=== PATIENT | female | born 1995 | race Caucasian/White ===

== ENCOUNTER 2021-04-10 14:29 | Outpatient (CLI) | payer OTHER, SELFPAY ==
--- NOTE | 2021-04-10 15:07 | CT_ITS ---
WS: [id number] CT ABDOMEN CONTRAST TECHNIQUE: Contrast enhanced CT of the abdomen with coronal and sagittal reformatted images. CLINICAL INFORMATION: LUQ PAIN COMPARISON: None. DLP: 890.[address] scans at [facility] use at least one of these dose optimization techniques: automat ed exposure control; mA and/or kV adjustment per patient size (includes targeted exams where dose is matched to clinical indication); or iterative reconstruction. FINDINGS: Lung bases are well aerated. No acute pulmonary infiltrates. Hepatomegaly measuring 19 cm c raniocaudal. A few tiny hepatic cysts. Normal portal vein and splenic vein. Normal spleen. Normal GE junction. Normal pancreatic parenchymal enhancement. Gallbladder is contracted. Adrenal glands are no rmal. Normal renal parenchymal enhancement. No hydronephrosis. Bilateral renal cysts the largest in t he left measuring 2.3 CM. No hydronephrosis. Normal caliber abdominal aorta. Small amount of free fluid in the cul-de-sac partially visualized. No evidence of high-grade small or large bowel obstruction. Tiny fat-containing umbilical hernia. No abdominal lymphadenopathy. Chronic bilateral pars defects L4-5 with grade 1 anterolisthesis measuring 4 mm. Disc osteophyte comp adan results in mild to moderate central canal stenosis with moderate facet arthropathy in combination with grade 1 anterolisthesis. Mild bilateral L4-[address]/CT abdomen w con* [id number] IMPRESSION: 1. Grade 1 anterolisthesis L4 on L5 with disc osteophyte complex and chronic b ilateral pars defects. Anterolisthesis measures 4 mm with mild to moderate cent ral canal stenosis. Mild bilateral L4-5 foraminal narrowing. 2. Hepatomegaly with mild diffuse fatty infiltration. 3. Gallbladder is contracted. 4. Bilateral renal cysts largest in the left measuring 2.3 CM. 5. Normal spleen. 6. Normal GE junction. 7. Small amount of free fluid in the cul-de-sac partially visualized on this a bdominal CT. 8. Tiny fat-containing umbilical hernia.
[2021-04-10] MEDS: iohexol 300 mg/mL 50 mL Btl PO (15:09)
[2021-04-10] MEDS: iohexol 300 mg/mL 100 mL Btl IV (15:26)
== END 2021-04-10 14:30 | disposition home or self-care (01) ==
PROVIDERS: PCP Family Medicine; Visit Provider Family Medicine
DX: R10.12 Left upper quadrant pain (principal); K42.9 Umbilical hernia without obstruction or gangrene; K76.89 Other specified diseases of liver; M25.78 Osteophyte, vertebrae
CPT/HCPCS: 74160; Q9967

== ENCOUNTER 2022-01-30 05:06 | Inpatient (IN) | payer BC, SELFPAY ==
[2022-01-29] VITALS (8 sets, daily range): BP systolic 111–137; BP diastolic 63–92; PULSE 79–93; RESP 15; TEMP 36.2; O2SAT 94–100; BMI 35.9
[2022-01-29] MEDS: miSOPROStol 100 mcg tablet 25 MCG VAGINAL (20:39)
[2022-01-29 21:14] LABS: Basophils % 0.1 %; Eosinophils # 0.1 10^3/uL (0.0-0.8); Eosinophils % 0.7 %; Hemoglobin 11.8 g/dL (11.5-15.3); Lymphocytes # 1.7 10^3/uL (0.8-4.8); Lymphocytes % 16.9 %; Mean Corpuscular HGB Conc 33.7 g/dL (30.0-36.0); Mean Corpuscular Hemoglobin 30.3 pg (28.0-34.0); Mean Corpuscular Volume 89.7 fl (81-99); Mean Platelet Volume 10.6 fL (7.4-10.4); Monocytes # 0.8 10^3/uL (0.2-0.9); Monocytes % 8.1 %; Neutrophils % 73.6 %; Nucleated Red Blood Cells % 0 %; Platelet Count 247 10^3/cmm (130-400); Red Cell Distribution Width 12.6 % (12.1-15.1); White Blood Count 9.9 10^3/uL (4.0-10.0)
[2022-01-29] MEDS: lactated ringers 1,000 ML 999 ML IV (23:05)
--- NOTE | 2022-01-29 23:48 | ANES.PREANE2 ---
Pre-Anesthetic Assessment Height/Weight: Height 1.63 m Weight 94.801 kg Temp Pulse Resp BP 97.2 F L 79 15 111/69 01/29/22 20:05 01/29/22 23:32 01/29/22 20:21 01/29/22 23:32 Preop Diagnosis: labor epidura; Familial anesthetic complications: none Was Beta Matias taken within 24 hours: N/A Was Clonidine taken within 24 hours: N/A Last Intake: 14:00 Social No alcohol and No tobacco Exam alert, oriented x 3, clear to auscultation bilaterally and regular rate & rhythm Airway Submandibular: within normal limits and Other Cervical ROM: within normal limits Mallampati: Class II Dentition: full Pulmonary None reported CV/HEM None reported None reported Hepatic None reported GI None reported Metabolic None reported Musc/skel None reported Neuropsych None reported Anesthetic Plan ASA status: 2 Anesthesia: Regional (specify below) (epidural) Risk of > 500 ml blood loss (7ml/kg in children): No Medications/Allergies Home Medications Medication Instructions Recorded Confirmed Last Taken Type 1 cap PO DAILY 01/29/22 01/29/22 01/27/22 History Allergies Allergy/AdvReac Type Severity Reaction Status Date / Time Penicillins Allergy ALGY-Rash Verified 01/29/22 23:06 [facility] Anesthesia Female Reproductive History : 2 Data Anesthesia : 01/29/22 20:30 Short CBC 01/29/22 Range/Units 20:30 WBC 9.9 (4.0-10.0) 10^3/uL Hgb 11.8 (11.5-15.3) g/dL Hct 35.0 L (37.0-47.0) % MCV 89.7 (81-99) fl Plt Count 247 (130-400) 10^3/cmm Neut % (Auto) 73.6 % Neut # (Auto) 7.30 (1.8-7.7) 10^3/uL Cardiac Studies: No Data to Display
[2022-01-30] VITALS (136 sets, daily range): BP systolic 77–137; BP diastolic 42–89; PULSE 52–121; RESP 15–18; TEMP 36.5–37.4; O2SAT 97–100
[2022-01-30] MEDS: lactated ringers 1,000 ML 999 ML IV (00:10)
[2022-01-30] MEDS: ePHEDrine 50 mg/mL Inj 10 MG IVP ×2 (00:22→04:47)
--- NOTE | 2022-01-30 00:36 | ANES.PROC ---
Anesthesia Procedures Procedure/Date: 01/30/22 Epidural: Time Out Performed: Yes Consents Signed: Procedure Consent Consent: requested by attending/covering physician, from patient, risks and benefits reviewed and patient agrees to proceed Lumbar Level: L3-L4 Epidural position: sitting Epidural procedure: sterile prep of area (betadine), 1% lidocaine to numb the area (3), 18 g needle, neg for paresthesia, test dose given, 1.5% xylocaine 1:200k epi (3ml/2ml), placed PCEA, no systemic response, sterile dressing applied, L.U.D. no apparent complications and 0.2% Ropiavacaine @ mls/hr (10ml/hr) Additional Comments: Pt once laid down c/o about to pass out. Pt with BP in 80's systolic and HR 60's. Pt given ephedrine 15mg IV. Fluid bolus 500ml started and placed PCEA with no bolus. Pt able to move lower extemities. BP increased to 107/59 pulse 69. Pt states feels much better. Will continue to monitor
[2022-01-30] MEDS: dextrose 5%-lactated ringers 1,000 ML 125 ML IV ×2 (02:28→08:38)
[2022-01-30] MEDS: oxytocin 30 UNIT/500 ML BAG IV (05:56)
--- NOTE | 2022-01-30 11:23 | PM.OPHPUD ---
Labor & Delivery H&P Update Date of Procedure: January 30, 2022 Date H&P Performed: 01/28/22 Admission Diagnosis: 27-year-old 2 para 1 at 40 weeks estimated gestational age presenting to the hospital with spontaneous rupture of membranes Preop diagnosis: labor Planned procedure: Spontaneous vaginal delivery Other information: The patient is an otherwise healthy female who presented to the OB department last night with concerns that she had ruptured membranes. She was checked with nitrazine and found to be positive. She was noted to have grossly ruptured membranes. She was noted to be 3 cm and 60% effaced. Her labs were unremarkable. Her blood type was a positive. Her antibody screen was negative. She was GBS negative. She passed her glucose screen. The remainder of her labs were within normal limits. Related Problem List Diagnoses (1) 40 weeks gestation of : I anticipate routine care. We will augment labor as needed. (2) Spontaneous rupture of membranes:
--- NOTE | 2022-01-30 11:28 | P.PCNOB_ITS ---
Delivery Note: Date of delivery: January 30, 2022 Pre-delivery diagnoses: 27-year-old 2 para 1-0-0-1 female at 40 weeks estimated gestational age with spontaneous rupture of membranes Post-delivery diagnoses: Status post spontaneous vaginal delivery Procedure: Spontaneous vaginal delivery Delivering Physician: Issa Faith Estimated blood loss (mL): 50 Pre-Delivery Course: The patient presented to the hospital with spontaneous rupture of membranes. She was having no contractions. Cytotec 25 mcg x 1 was placed. She gradually progressed to 9. After being at 9 cm for several hours, I elected to augment her labor with Pitocin. She then progressed to complete without difficulty. Delivery: DELIVERY: The patient progressed to complete without difficulty. She delivered a female with a weight of 8 pounds 10 ounces with Apgars of 8, 9. The baby was delivered from the VANGIE position and placed on the mother's abdomen. The cord was then clamped and cut. There was no nuchal cord. There was no meconium. The placenta and 3 vessel cord were delivered intact shortly thereafter. The perineum and vaginal vault were carefully examined. No lacerations were noted. Both the mother and the baby were in stable condition. Post-Delivery Status: Good A&P Assessment and plan (1) Spontaneous rupture of membranes: Status: Acute (2) 40 weeks gestation of : Status: Acute (3) Spontaneous vaginal delivery: I anticipate routine care. Status: Acute Coding Level of Care Code Acute [employer] for Chg Fwd Diagnoses Spontaneous rupture of membranes 40 weeks gestation of Z3A.40 Spontaneous vaginal delivery O80
--- NOTE | 2022-01-30 13:15 | PC.NURSE ---
up to bathroom, void 400mL. audra care performed, pad and gown changed. bed linens changed and pt back to bed.
[2022-01-30] MEDS: ibuprofen 800 mg tablet PO ×2 (14:15→21:33)
[2022-01-30] MEDS: benzocaine-menthol 78 gm Canister 1 SPRAY TOPICAL (14:15)
[2022-01-30] MEDS: HYDROcodone-acetaminophen 5-325 mg Tablet PO ×2 (17:16→23:46)
[2022-01-30] MEDS: docusate sodium 100 mg Capsule PO (17:16)
[2022-01-31 00:05] LABS: Hematocrit 31.3 % (37.0-47.0); Hemoglobin 10.4 g/dL (11.5-15.3); Mean Corpuscular HGB Conc 33.2 g/dL (30.0-36.0); Mean Corpuscular Hemoglobin 30.5 pg (28.0-34.0); Mean Corpuscular Volume 91.8 fl (81-99); Mean Platelet Volume 10.8 fL (7.4-10.4); Platelet Count 202 10^3/cmm (130-400); Red Blood Count 3.41 10^6/uL (4.1-5.3); Red Cell Distribution Width 12.7 % (12.1-15.1); White Blood Count 13.5 10^3/uL (4.0-10.0)
[2022-01-31 01:15] VITALS: BP 120/77; PULSE 64; RESP 14; TEMP 36.5; O2SAT 97
[2022-01-31 06:00] VITALS: BP 116/70; PULSE 66; RESP 16; TEMP 36.4; O2SAT 97
--- NOTE | 2022-01-31 07:02 | PM.OBGYDC ---
Discharge Providers GLOBAL IMPLEMENTATION MANAGER Date of Admission: 01/30/22 05:06 Date of Discharge: 02/04/22 Attending Provider at Admission: Issa Faith MD Attending Provider at Discharge: Issa Faith MD Primary Care Provider: Issa Faith MD Diagnoses at Discharge Discharge Diagnosis (1) Spontaneous rupture of membranes: Status: Resolved (2) 40 weeks gestation of : Status: Resolved (3) Spontaneous vaginal delivery: Status: Resolved Reason for Visit Reason for Visit: Possible ROM Hospital Course Hospital Course The patient presented to the hospital with spontaneous rupture of membranes. She was placed on Cytotec 25 mcg. She is then placed on Pitocin to augment her labor. She progressed to complete and had an unremarkable delivery of a healthy-appearing baby. Her course was also unremarkable. Her bleeding was within normal limits. Her pain was well controlled. She bottle-fed her baby. Information Peripartum Data: Infant Delivery Method: Vaginal Physical Exam Narrative: The patient is alert. She appears comfortable. Her heart has a regular rate and rhythm with no murmurs appreciated. Lungs are clear to auscultation bilaterally. Her fundus is firm and below the umbilicus. Urinary Catheter Management: Pineda: Cath Placed During This Visit: yes, but has since been removed by the nurse Reason for Continuing Indwelling Catheter: Decision to DC Catheter Urinary Catheter Date of Insertion: 01/30/22 Urinary Catheter Time of Insertion: 00:51 Date Urinary Catheter Removed: 01/30/22 Time Urinary Catheter Discontinued: 11:05 Discharge Data Studies Completed and Pending Laboratory Results WBC 13.5 10^3/uL (4.0-10.0) H 01/30/22 23:40 RBC 3.41 10^6/uL (4.1-5.3) L 01/30/22 23:40 Hgb 10.4 g/dL (11.5-15.3) L 01/30/22 23:40 Hct 31.3 % (37.0-47.0) L 01/30/22 23:40 MCV 91.8 fl (81-99) 01/30/22 23:40 MCH 30.5 pg (28.0-34.0) 01/30/22 23:40 MCHC 33.2 g/dL (30.0-36.0) 01/30/22 23:40 RDW 12.7 % (12.1-15.1) 01/30/22 23:40 Plt Count 202 10^3/cmm (130-400) 01/30/22 23:40 MPV 10.8 fL (7.4-10.4) H 01/30/22 23:40 Neut % (Auto) 73.6 % 01/29/22 20:30 Lymph % (Auto) 16.9 % 01/29/22 20:30 [place] % (Auto) 8.1 % 01/29/22 20:30 Eos % (Auto) 0.7 % 01/29/22 20:30 Baso % (Auto) 0.1 % 01/29/22 20:30 Neut # (Auto) 7.30 10^3/uL (1.8-7.7) 01/29/22 20:30 Lymph # (Auto) 1.7 10^3/uL (0.8-4.8) 01/29/22 20:30 [place] # (Auto) 0.8 10^3/uL (0.2-0.9) 01/29/22 20:30 Eos # (Auto) 0.1 10^3/uL (0.0-0.8) 01/29/22 20:30 Baso # (Auto) 0.0 10^3/uL (0.0-0.1) 01/29/22 20:30 Nucleated RBC % (auto) 0 % 01/29/22 20:30 Nucleated RBCs # 0.0 /100WBC 01/29/22 20:30 Vitals Last Vital Signs Temp 97.6 F 01/31/22 06:00 Pulse 66 01/31/22 06:00 Resp 16 01/31/22 06:00 BP 116/70 01/31/22 06:00 Pulse Ox 97 01/31/22 06:00 Discharge Plan Discharge Patient Disposition: Home Condition: Stable Prescriptions: New ibuprofen 800 mg Tablet 800 mg PO TID Qty: 30 0RF Continued capsule 1 cap PO DAILY 0RF Discharge Orders: Discharge Order (Routine); Ordered 01/31/22 Ordered By: Issa Faith Referrals: Issa Faith MD [Primary Care Provider] - 03/13/22 12:30 pm (6 week post- appointment: 03/13/22 @12:30. ) Discharge Diet: Usual diet Discharge Activity: Limit activity as instructed Patient Instructions: Depression (DC), Bleeding (DC), Preeclampsia and Eclampsia After Delivery (GEN), Breast Care for the Non- Mother (DC), OB Discharge Report, OB Food/Drug Interaction Guide, Opioid Safety, OB Home Care, OB Vaginal Deliveries Discharge Attestations GLOBAL IMPLEMENTATION MANAGER Time Spent in Discharge Care*: less than 30 min Coding Level of Care Code Acute [employer] for g Fwd Diagnoses Spontaneous rupture of membranes 40 weeks gestation of Z3A.40 Spontaneous vaginal delivery O80
[2022-01-31] MEDS: prenatal vitamin Capsule 1 CAP PO (10:34)
[2022-01-31] MEDS: ibuprofen 800 mg tablet PO (10:34)
[2022-01-31] MEDS: docusate sodium 100 mg Capsule PO (10:34)
[2022-01-31 11:50] VITALS: BP 125/87; PULSE 67; RESP 16; TEMP 36.6; O2SAT 98
--- NOTE | 2022-01-31 17:19 | ANE.PACU2 ---
Inpatient post-anesthesia follow up: Airway intact: Yes Vital signs: Temperature 97.8 F Pulse Rate 67 Respiratory Rate 16 Blood Pressure 125/87 Pulse Oximetry 98 Oxygen Delivery Me thod Room Air Oxygen Flow Rate Fraction of Inspir ed Oxygen Hydration adequate: Yes Nausea and vomiting: No Pain level: 1 Mental status: Baseline Additional Comments: EMR review
== END 2022-01-31 12:30 | disposition home or self-care (01) | DRG 807 ==
LOC: OPOB 05:06 → OBGYN 05:06
PROVIDERS: Admitting Provider Family Medicine; PCP Family Medicine; Visit Provider Family Medicine
DX: O42.02 Full-term premature rupture of membranes, onset of labor within 24 hours of rupture (principal); Z37.0 Single live birth; Z3A.40 40 weeks gestation of pregnancy
CPT/HCPCS: 12345; 36415; 51702; 59025; 59409; 83986; 85025; 85027; 99211; J2795

== ENCOUNTER → 2025-01-22 13:30 | Outpatient (BNVA) | payer OTHER, SELFPAY | PROVIDERS: PCP Family Medicine; Visit Provider Nurse Practitioner | DX: R19.7 Diarrhea, unspecified (principal) | CPT/HCPCS: 87177; 87209 ==